=== PATIENT | female | born 2000 | race Hispanic/Latino ===

== ENCOUNTER 2021-02-08 07:49 | Inpatient (IN) | payer OTHER, SELFPAY ==
[~2021-02-08] VITALS: Ht 157.5 cm; Wt 62.0 kg
[2021-02-08] VITALS (22 sets, daily range): BP systolic 117–145; BP diastolic 58–86
[2021-02-08] MEDS ORDERED: LACTATED RINGER'S 1000 ML IV STA (10:22)
[2021-02-08] MEDS ORDERED: OXYTOCIN DRIP 30 UNITS in IV 1 EA IV PRN (10:25)
[2021-02-08] MEDS ORDERED: LR 1,000 ML IV SCH ×2 (10:25→17:15)
[2021-02-08 11:13] LABS: HEMOGLOBIN 12.9 g/dl (12.0-15.5); MEAN CORPUSCULAR HEMOGLOBIN 27.1 pg (27.0-33.0); MEAN CORPUSCULAR HGB CONC 32.3 g/dl (32.0-36.5); PLATELET COUNT, AUTOMATED 291 10^3/uL (150-450); RED BLOOD COUNT 4.76 10^6/uL (4.00-5.40); WHITE BLOOD COUNT 11.3 10^3/uL (4.0-10.0)
[2021-02-08] MEDS ORDERED: FENTANYL 2MCG/ML ROPIVACAINE 0.2% IN 0.9% NACL 100ML IVBAG As Ordered ONE (11:42)
--- NOTE | 2021-02-08 11:47 | HPEPDOC ---
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 Age: 20 : 1 Term: 0 Pre-term: 0 Abortions: 0 Livin Care Care: Good Care Dating Final EDC: Feb 20, 2021 Final EDC for Daily Update: Feb 20, 2021 Final EDC by: 1st trimester (US) 1st Trimester Date: Jul 17, 2020 Weeks + Days: 8 (+6) Estimated Date of Confinement: Feb 20, 2021 EGA at Admission: 38 (+2) Antepartum Course Diagnos(e)s gestational anemia Height (inches): 62 Pre- weight (lbs.): 120 Admission Weight (lbs.): 139 Change in Weight (lbs.): 19 Past Medical History Past Obstetrical History : Past 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 Past Medical History Medical History denies Surgical History: Denies/None Family History Significant Family History: No pertinent family hx Social History Social history Latvian speaking only Marital Status: Psychosocial History: No pertinent psych hx * Smoker: non-smoker Alcohol: Denies Drugs: denies Abuse Violence Screening Have you been hit/kicked/slapp: No Have you been sexually assault: No Imunizations Tdap status: current Influenza Status: current Allergies Coded Allergies: No Known Allergies (Verified Allergy, Unknown, 02/08/21) Physical Examination Physical Examination GENERAL: Alert and oriented times three. BREAST: . ABDOMEN: Gravid and non-tender to touch. FETUS: Is vertex (VTX) by sterile vaginal examination (SVE), fetus is vertex (VTX) by Audie. HEART RATE: Regular rate and rhythm. LUNGS: Clear to auscultation (CTA). EXTREMITIES: No edema. No clonus. Deep tendon reflexes (DTRs) + 2. Laboratory Data 24H LABS Laboratory Tests 2 02/08/21 11:00: Nucleated Red Blood Cells % (auto) 0.0 CBC/BMP Laboratory Tests 02/08/21 11:00 Pertinent Laboratoy Data Blood Type: A+ RBC Antibody Screen: Negative HIV: Negative Hepatitis B: Negative Rapid Plasma Reagin: Nonreactive Rubella: Immune Varicella: Immune Chlamydia/Gonorrhea: Negative Group B Streptococcus: Negative Cystic Fibrosis: Negative Anatomy Ultrasound Placenta Location: Posterior Normal Anatomy: Yes Placenta Previa: No Vaginal Examination Dilation: 6 cm Effacement: 90% Station: -2 Cervical Consistency: Soft Cervical Position: Posterior Presentation: Cephalic presentation Assessment Heart Rate (FHR): 130 Variability: Moderate Accelerations: Positive Decelerations: None Tocometer Contractions: Yes Frequency: regular, every 2-2 min. Duration: greater than 60 seconds Strength: palpated as moderate, resting tone palp/soft Multi-drug resistant Organism: No history of MDRO Assessment/Plan Assessment Zuleika is a 21-year-old (G)1 para (P)[0 at 38+2 weeks by 8+6-week ultrasound. Presents to Labor and Delivery (L&D) in labor. Plan Admit and orient. 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 Diet: clear liquid. Group B Streptococcus (GBS) negative. Labs and intravenous (IV) per unit protocol. Counseled on Pitocin and induction of labor (IOL). Lactated Ringers (LR): Bolus 1000 mL, then at 125 mL/hr. Anticipate [normal spontaneous delivery ()]. C-S as appropriate. THAI KEBEDE CNM Feb 08, 2021 11:47
[2021-02-08] MEDS ORDERED: ONDANSETRON 4MG/2ML VIAL IV PRN (12:25)
[2021-02-08] MEDS ORDERED: REFRIGERATOR IV KEYS XX PRN (12:25)
[2021-02-08] MEDS ORDERED: LACTATED RINGER'S 1000 ML IV PRN (12:25)
[2021-02-08] MEDS ORDERED: EPIDURAL/PCA KEYS XX PRN (12:25)
[2021-02-08] MEDS ORDERED: EPIDURAL COMMENT XX SCH (12:25)
[2021-02-08] MEDS ORDERED: NALOXONE INJ 0.4MG/1ML VIAL (J2310 PER 1MG) IV PRN (12:25)
[2021-02-08] MEDS ORDERED: ePHEDrine SULFATE 25 MG/5 ML(5MG/ML) SYRINGE IV PRN (12:25)
[2021-02-08] MEDS ORDERED: FENTANYL/ROPIVACAINE/NACL BAG 100 ML EPIDURAL SCH (12:25)
[2021-02-08] MEDS ORDERED: diphenhydrAMINE 50MG/ML VIAL (J1200) IV PRN (12:25)
[2021-02-08] MEDS ORDERED: OXYTOCIN INJ 10 UNITS/ML VIAL (J2590) IV ONE (13:45)
[2021-02-08] MEDS ORDERED: ACETAMINOPHEN 500 MG TAB PO PRN ×2 (17:15→17:30)
[2021-02-08] MEDS ORDERED: DOCUSATE SODIUM 100MG CAPSULE PO PRN ×2 (17:15→17:30)
[2021-02-08] MEDS ORDERED: MEASLES,MUMPS,RUBELLA VACCINE INJ (MMR-II) (90707) SC SCH ×2 (17:15→17:30)
[2021-02-08] MEDS ORDERED: IBUPROFEN 600MG TAB PO PRN ×2 (17:15→17:30)
[2021-02-08] MEDS ORDERED: ACETAMINOPHEN TAB 650MG DOSE (2X325MG) PO PRN ×2 (17:15→17:30)
[2021-02-08] MEDS ORDERED: METHYLERGONOVINE MALEATE 0.2 MG TAB PO PRN ×2 (17:15→17:30)
[2021-02-08] MEDS ORDERED: MOM 30ML SUSPENSION UDC PO PRN ×2 (17:15→17:30)
[2021-02-08] MEDS ORDERED: OXYTOCIN DRIP 30 UNITS in IV 1 EA IV SCH (17:15)
[2021-02-08] MEDS ORDERED: RHOGAM 300 MCG (1500 IU) INJ (J2790) IM SCH ×2 (17:15→17:30)
[2021-02-08] MEDS ORDERED: ANUSOL HC CREAM 30GM TOP PRN (17:30)
[2021-02-08] MEDS: LR 1,000 ML IV SCH (17:30)
[2021-02-08] MEDS ORDERED: DIBUCAINE 1% OINTMENT 30GM TOP PRN (17:30)
[2021-02-08 17:34] LABS: CORD GAS ABE V -1.6; CORD GAS HCO3 V 24.4 MEQ/L; CORD GAS O2 SAT V 63.3 %; CORD GAS PCO2 V 45.8 mmHg; CORD GAS PH V 7.345 UNITS; CORD GAS PO2 V 26.2 mmHg; CORD GAS SBC V 22.2 MEQ/L; CORD GAS TCO2 V 25.8 MEQ/L
[2021-02-08 17:37] LABS: CORD GAS ABE A -4.3; CORD GAS HCO3 A 21.8 MEQ/L; CORD GAS O2 SAT A 66.4 %; CORD GAS PCO2 A 43.8 mmHg; CORD GAS PH A 7.315 UNITS; CORD GAS PO2 A 28.7 mmHg; CORD GAS SBC A 20.2 MEQ/L; CORD GAS TCO2 A 23.2 MEQ/L
[2021-02-09] MEDS: LR 1,000 ML IV SCH (01:30)
[2021-02-09] MEDS ORDERED: DIBUCAINE 1% OINTMENT 30GM TOP PRN (03:10)
[2021-02-09] MEDS ORDERED: ACETAMINOPHEN 500 MG TAB PO PRN (03:10)
[2021-02-09] MEDS ORDERED: METHYLERGONOVINE MALEATE 0.2 MG TAB PO PRN (03:10)
[2021-02-09] MEDS ORDERED: DOCUSATE SODIUM 100MG CAPSULE PO PRN (03:10)
[2021-02-09] MEDS ORDERED: ACETAMINOPHEN TAB 650MG DOSE (2X325MG) PO PRN (03:10)
[2021-02-09] MEDS ORDERED: MEASLES,MUMPS,RUBELLA VACCINE INJ (MMR-II) (90707) SC SCH (03:10)
[2021-02-09] MEDS ORDERED: MOM 30ML SUSPENSION UDC PO PRN (03:10)
[2021-02-09] MEDS ORDERED: RHOGAM 300 MCG (1500 IU) INJ (J2790) IM SCH (03:10)
[2021-02-09 06:00] VITALS: BP 111/57
[2021-02-09 08:03] LABS: HEMATOCRIT 34.1 % (36.0-47.0); MEAN CORPUSCULAR HEMOGLOBIN 26.6 pg (27.0-33.0); MEAN CORPUSCULAR HGB CONC 31.1 g/dl (32.0-36.5); MEAN CORPUSCULAR VOLUME 85.5 fl (80.0-96.0); PLATELET COUNT, AUTOMATED 237 10^3/uL (150-450); RED BLOOD COUNT 3.99 10^6/uL (4.00-5.40); WHITE BLOOD COUNT 14.8 10^3/uL (4.0-10.0)
[2021-02-09 08:11] LABS: HEMOGLOBIN 10.6 g/dl (12.0-15.5)
[2021-02-09] MEDS: PRENATAL VITAMINS CHEWABLE TABLET PO SCH (08:20)
[2021-02-09] MEDS: IBUPROFEN 600MG TAB PO PRN ×3 (08:21→21:24)
[2021-02-09] MEDS ORDERED: PRENATAL VITAMINS CHEWABLE TABLET PO SCH (09:00)
--- NOTE | 2021-02-09 12:40 | DN ---
DELIVERY NOTE DATE OF DELIVERY: 02/08/2021 TIME OF : GENDER: male : 9/9 This lady is a 1, now para 1, who was admitted for contractions. She had an epidural in place. Spontaneous vaginal delivery, live- male weighing 2940 grams, scores of 9 and 9 at one and five minutes, respectively. Cord around the ankle times one, 6 pounds 8 ounces. Arterial pH 7.31, base excess -4.3, venous pH 7.35, base excess -1.6. The placenta delivered spontaneous after, three vessels in the cord, membranes and tissues intact. She had a left vulvar tear, which had a little pumper in it. A 3-[address] using a mattress stitched closed the area with good hemostasis. The anterior and posterior locke were clear. The rectum was normal. The sphincter was tight. Uterus contracted well down on Pitocin. Patient and baby tolerating procedure well. [place]
--- NOTE | 2021-02-09 14:37 | IPN ---
PROGRESS NOTE DATE: 02/09/2021 SUBJECTIVE: This lady is a 20-year-old, 1, now para 1, came in complaining of contractions and spotting but not any active bleeding. She progressed slowly through the day. She eventually got fully dilated and had a spontaneous vaginal delivery with epidural in place, a live male infant, weighing 6 lb, 8 oz, Apgars of 9 and 9 in 1 and 5 minutes respectively. On her first day, we discussed phlebitis, cystitis, mastitis, endometritis and cellulitis, diet and exercise, pain management, perineal, breast and wound care. Her admitting hemoglobin was 12.9, hematocrit 40.0 and platelets were 291. Her 0600 CBC is still pending. OBJECTIVE: Her vital signs today, her blood pressure is 111/57, respirations 16, pulse 84, temperature 97.9. The rest of the examination unremarkable, normocephalic, atraumatic. Neck: Full range of motion. Pupils equal and reactive to light. Distal pulses symmetric, no evidence of DVT, PE or superficial phlebitis. Chest is clear, bilateral bases, no wheezes or rhonchi. No CVA tenderness. Abdomen is soft. Four quadrant bowel sounds are noted. The perineum is intact. No rashes, lesions or pruritus. No arthralgias, myalgias. No complaint of joint pain, cough, shortness of breath or dyspnea on exertion. SUMMARY: We have a term gestation, delivered a live male infant. Plans are for discharge tomorrow, order picker medications at [facility]. All questions were answered, 20 minute discussion.
[2021-02-09 17:57] VITALS: BP 104/51
[2021-02-10 06:00] VITALS: BP 130/60
[2021-02-10 07:38] LABS: HEMATOCRIT 33.7 % (36.0-47.0); HEMOGLOBIN 10.7 g/dl (12.0-15.5); MEAN CORPUSCULAR HGB CONC 31.8 g/dl (32.0-36.5); MEAN CORPUSCULAR VOLUME 85.1 fl (80.0-96.0); PLATELET COUNT, AUTOMATED 231 10^3/uL (150-450); RED BLOOD COUNT 3.96 10^6/uL (4.00-5.40); WHITE BLOOD COUNT 10.6 10^3/uL (4.0-10.0)
[2021-02-10] MEDS ORDERED: IBUP-1022 PO (08:05)
[2021-02-10] MEDS ORDERED: PRENCHW PO (08:05)
[2021-02-10] MEDS ORDERED: ACET1TAB55 PO (08:05)
--- NOTE | 2021-02-10 08:14 | DS.PDOC ---
Discharge Summary General Date of Admission Feb 08, 2021 at 09:52 Date of Discharge Feb 10, 2021 Discharge Summary HOSPITAL COURSE: Ms. Zoran Worley is a 21 yo G1 now P1 who underwent an uncomplicated on 08Feb2021 after being admitted for active labor. Her course was unremarkable. On her day of discharge she met all appropriate discharge criteria. She was ambulating, voiding, tolerating a regular diet, and had minimal lochia. DISCHARGE MEDICATIONS: Please see below. ALLERGIES: Please see below. PHYSICAL EXAMINATION ON DISCHARGE: VITAL SIGNS: Please see below. GENERAL: AAOX3, NAD ABDOMINAL EXAMINATION: Fundus firm at U-2. No fundal tenderness EXTREMITIES: No edema PSYCHIATRIC EXAMINATION: Affect appropriate LABORATORY DATA: Please see below. ACTIVITY: Pelvic rest for 6 weeks DIET: Regular DISCHARGE PLAN: Discharge home DISPOSITION: Discharge home on 10Feb2021 DISCHARGE INSTRUCTIONS: 1. Nothing in the vagina for 6 weeks ITEMS TO FOLLOWUP ON ON OUTPATIENT: 1. Call to schedule a visit for 6 weeks post delivery DISCHARGE CONDITION: Stable. TIME SPENT ON DISCHARGE: Greater than 20 minutes. Thu Quezada DO Vital Signs/I&Os Vital Signs Date Time Temp Pulse Resp B/P (MAP) Pulse Ox O2 Delivery O2 Flow Rate FiO2 02/10/21 06:00 97.9 61 16 130/60 (83) 02/09/21 17:57 98 Room Air Laboratory Data Labs 24H Laboratory Tests 2 02/10/21 07:11: Nucleated Red Blood Cells % (auto) 0.0 CBC/BMP Laboratory Tests 02/10/21 07:11 Discharge Medications Scheduled Pnv No.118/Iron Fumarate/FA ( 19 Chewable Tablet) 1 Each Tab.chew, 1 TAB PO DAILY Scheduled PRN Acetaminophen (Acetaminophen) 325 Mg Tablet, 650 MG PO Q4HP PRN for PAIN LEVEL 1-5 Ibuprofen (Ibuprofen) 600 Mg Tablet, 600 MG PO Q6HP PRN for PAIN LEVEL 1-5 Allergies Coded Allergies: No Known Allergies (Verified Allergy, Unknown, 02/08/21) THU QUEZADA DO Feb 10, 2021 08:14
[2021-02-10] MEDS: PRENATAL VITAMINS CHEWABLE TABLET PO SCH (11:40)
== END 2021-02-10 15:30 | disposition home or self-care (01) | DRG 807 ==
LOC: M LDO 07:49 → EDBD 07:49 → M LDI 09:52 → M OBS 19:50
PROVIDERS: ADMIT Registered Nurse; ATTEND Obstetrics & Gynecology
PROC: 10E0XZZ Delivery of Products of Conception, External Approach (ICD-10-PCS; principal; 2021-02-08)
PROC: 0HQ9XZZ Repair Perineum Skin, External Approach (ICD-10-PCS; 2021-02-08)
DX: O70.0 First degree perineal laceration during delivery (principal); Z37.0 Single live birth; Z3A.38 38 weeks gestation of pregnancy